=== PATIENT | female | born 1975 | race Caucasian/White ===

== ENCOUNTER 2024-01-26 11:03 | Emergency (ER) | payer SELFPAY ==
[~2024-01-26] VITALS: Ht 172.7 cm; Wt 81.4 kg
[2024-01-26] MEDS ORDERED: LAMO100T3 PO (11:13)
[2024-01-26] MEDS ORDERED: BUSP5TA PO (11:13)
[2024-01-26] MEDS ORDERED: QUET1TAB17 PO (11:13)
[2024-01-26] MEDS: NS 1,000 ML IV ONE (12:00)
[2024-01-26 12:12] LABS: BASO % 0.2 % (0.0-1.0); EOS # 0.1 10^3/uL (0.0-0.5); EOS % 1.2 % (0.0-3.0); HEMATOCRIT 42.4 % (36.0-47.0); HEMOGLOBIN 14.8 g/dl (12.0-15.5); LYMPH # 1.5 10^3/uL (1.5-5.0); LYMPH % 16.4 % (24.0-44.0); MEAN CORPUSCULAR HEMOGLOBIN 32.3 pg (27.0-33.0); MEAN CORPUSCULAR HGB CONC 34.9 g/dl (32.0-36.5); MEAN CORPUSCULAR VOLUME 92.6 fl (80.0-96.0); MONO # 0.4 10^3/uL (0.0-0.8); NEUTROPHILS # 7.3 10^3/uL (1.5-8.5); NEUTROPHILS % 77.8 % (36.0-66.0); PLATELET COUNT, AUTOMATED 388 10^3/uL (150-450); RED BLOOD COUNT 4.58 10^6/uL (4.00-5.40); WHITE BLOOD COUNT 9.4 10^3/uL (4.0-10.0)
[2024-01-26 12:30] LABS: D-DIMER QUANT 0.52 ug/mL (<0.5); INR 0.95; PARTIAL THROMBOPLASTIN TIME 27.1 SECONDS (24.8-34.2); PROTHROMBIN TIME 12.4 SECONDS (12.5-14.5)
[2024-01-26 12:43] LABS: BLOOD UREA NITROGEN 18 MG/DL (9-23); CALCIUM LEVEL 9.5 MG/DL (8.5-10.1); CARBON DIOXIDE LEVEL 29 MMOL/L (20-31); CHLORIDE LEVEL 106 MMOL/L (98-107); CK-MB VALUE MASS < 1.0 NG/ML (<3.6); CPK CREATINE PHOSPHOKINASE 48 U/L (34-145); CREATININE FOR GFR 0.74 MG/DL (0.55-1.30); GLOMERULAR FILTRATION RATE > 60.0 (>58); GLUCOSE, FASTING 106 MG/DL (60-100); MB/CK RELATIVE INDEX 2.08 (< OR =4); POTASSIUM SERUM 4.5 MMOL/L (3.5-5.1); SODIUM LEVEL 139 MMOL/L (136-145)
[2024-01-26 12:44] LABS: HCG, SERUM QUALITATIVE NEGATIVE (NEGATIVE)
[2024-01-26 12:45] LABS: THYROID STIMULATING HORMONE 1.352 uIU/ML (0.55-4.78)
[2024-01-26] MEDS: ONDANSETRON 4MG 2ML VIAL IV ONE (12:45)
[2024-01-26] MEDS ORDERED: ISOVUE-370 76% 100ML VIAL As Ordered ONE (12:46)
[2024-01-26 13:20] VITALS: BP 107/60; TEMP 97; O2SAT 99
== END 2024-01-26 13:57 | disposition home or self-care (01) ==
LOC: M ED 11:03
DX: R55 Syncope and collapse (principal); F31.9 Bipolar disorder, unspecified; F17.290 Nicotine dependence, other tobacco product, uncomplicated; F10.10 Alcohol abuse, uncomplicated; Z88.1 Allergy status to other antibiotic agents; Z88.2 Allergy status to sulfonamides; Z79.899 Other long term (current) drug therapy
CPT/HCPCS: 70450; 71275; 80048; 82550; 82553; 84443; 84484; 84703; 85025; 85379; 85610; 85730; 93005; 93041; 94760; 96361; 96374; 99285; J2405; Q9967